=== PATIENT | male | born 1950 | race Caucasian/White ===

== ENCOUNTER 2017-01-05 10:39 | Outpatient (CLI) | payer MEDICARE ==
[~2017-01-05] VITALS: Ht 175.3 cm; Wt 66.7 kg
[~2017-01-05 10:39] MED LIST: CELEXA10 MG; GABAPENTIN100 MG; IBUPROFEN400 MG PO; LEVAQUIN500 MG PO; LOVASTATIN40 MG PO; NORVASC10 MG PO; NORVASC5 MG PO; PRILOSEC20 MG PO; PROVENTIL HFA6.7 GM INH; SPIRIVA18 MCG INH; STERAPRED 5MG 65 M1 PO; TUMS X-STR300 MG PO; VIAGRA25 MG PO; ZESTORETIC 20-1 EACH PO; ZOFRAN4 MG PO; ZYLOPRIM100 MG PO
[2017-01-05 11:40] VITALS: BP 111/70; Ht 175.3 cm; Wt 66.7 kg
--- NOTE | 2017-01-05 18:28 | NUR ---
1350 REPORT FROM DEIDRA MCWILLIAMS RN. PT. RECEIVING BLOOD VIA PORT LEFT CHEST BY ALARIS PUMP AT 175/CC/HR. DENIES PROBLEMS, RATE INCREASED TO 200/CC/HR. AT BEDSIDE. 1420 DRINKING COLA, VOIDS IN URINAL, QS, DENIES NEEDS. 1500 BLOOD COMPLETED, LINE BEING FLUSHED WITH NS. 1510 2ND UNIT CHECKED AT BEDSIDE BY THIS NURSE AND RAFAT OROZCO RN INITATED BY ALARIS PUMP AT 50CC/HR. DENIES NEEDS. 1525. DENIES PROBLEMS, RATE INCREASED TO 150/CC/HR. COLA REQUESTED AND SERVED. 1625 SUPPER TRAY ORDERED. 1650 SUPPER TRAY SERVED. BLOOD NEAR COMPLETED. 1707 BLOOD COMPLETED, LINE BEING FLUSHED WITH NS. 1730 PT. ATE 90% SUPPER DIET, DENIES PROBLEMS 1807 DENIES PROBLEMS WITH TRANSFUSION, PORT HAS BEEN FLUSHED WITH SALINE AND HEPARIN FLUSH AND DC'D WITH DAVIS NEEDLE INTACT. DC INSTS. REVIEWED WITH PT AND PT'S . 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
== END 2017-01-05 18:10 | disposition home or self-care (01) ==
LOC: D.OPS 10:39
DX: D64.81 Anemia due to antineoplastic chemotherapy (principal)

== ENCOUNTER 2017-01-16 12:41 | Emergency (ER) | payer MEDICARE ==
[2017-01-05 11:40] VITALS: BMI 21.7
[2017-01-16 13:57] LABS: BASOPHILS 0 % (0.0-2.0); EOSINOPHILS 1.4 % (0-7); HEMOGLOBIN 8.9 g/dL (13.5-17.5); IMMATURE GRANULOCYTES 0.4 % (0-5); LYMPHOCYTES 11.7 % (15-50); MCH 31.8 pg (26.0-34.0); MCHC 34.2 g/dL (31.0-37.0); MCV 92.9 fL (80.0-100.0); MEAN PLATELET VOLUME 9.8 fL (7.4-10.4); MONOCYTES 1.6 % (2-11); NEUTROPHILS 84.9 % (40-80); RDW 15.2 % (11.5-14.5)
[2017-01-16 14:06] LABS: PLATELET COUNT 137 10x3/uL (130-400)
[2017-01-16 14:27] LABS: ALBUMIN 3.2 g/dL (3.4-5.0); ALKALINE PHOSPHATASE 60 U/L (46-116); ALT (SGPT) 63 U/L (10-68); BILIRUBIN - TOTAL 0.37 mg/dL (0.2-1.3); CALC OSMOLALITY 276 mosm/kg (275-300); CALCIUM 8.7 mg/dL (8.5-10.1); CARBON DIOXIDE 21.2 mmol/L (21.0-32.0); CHLORIDE - SERUM 99 mmol/L (98-107); CREATININE - SERUM 2.4 mg/dL (0.6-1.3); GLUCOSE 136 mg/dL (74-106); PROTEIN - SERUM 6.5 g/dL (6.4-8.2); SODIUM 132 mmol/L (136-145); UREA NITROGEN 40 mg/dL (7-18); eGFR NON AFRICAN AMERICAN 29 mL/min (90-120)
[2017-01-16 14:29] LABS: CREATINE KINASE 26 UL (21-232); TROPONIN-I < 0.017 ng/mL (0.000-0.060)
[2017-01-16 17:12] LABS: CKMB 0.3 U/L (0.0-3.6)
== END 2017-01-16 18:35 | disposition home or self-care (01) ==
LOC: D.ER 12:41
PROVIDERS: Emergency Medicine
DX: R07.9 Chest pain, unspecified (principal)

== ENCOUNTER 2017-02-23 09:49 | Outpatient (CLI) | payer MEDICARE ==
[2017-01-05 11:40] VITALS: BMI 21.7
--- NOTE | 2017-02-23 18:20 | NUR ---
PLATELET INFUSION COMPLETE, PORT FLUSHING WITH NS AT KVO, PATIENT UNDERSTANDS NEED TO REMAIN FOR ONE HOUR AND AGREES, PATIENT DENIES COMPLAINTS
--- NOTE | 2017-02-23 19:28 | NUR ---
PORT FLUSHED PER PROTOCOL WITH SALINE AND HEPARIN FLUSH, PORT DEACCESSED. DISCHARGE INSTRUCTIONS REVIEWED WITH PATIENT AND SPOUSE. PATIENT DISCHARGED VIA WHEELCHAIR TO PRIVATE VEHICLE WITH SPOUSE
== END 2017-02-23 19:29 | disposition home or self-care (01) ==
LOC: D.OPS 09:49
DX: D64.81 Anemia due to antineoplastic chemotherapy (principal)

== ENCOUNTER 2017-03-16 10:04 | Outpatient (CLI) | payer MEDICARE ==
[~2017-03-16] VITALS: Ht 172.7 cm; Wt 70.0 kg
[2017-03-16 12:30] VITALS: BP 115/59; Ht 172.7 cm; Wt 70.0 kg
--- NOTE | 2017-03-16 12:34 | NUR ---
1215 PATIENTS BLOOD IS READY, FLUSHED LINE AND HOOKED UP TUBING, FIRST UNIT AT 75CC HOUR, PATIENT INSTRUCTED TO CALL IF ANY REACTION. PRE MEDS GIVEN. EATEN LUNCH. VS MACHINE SET ON EVERY 15MINUTES, AT BEDSIDE AND WILL CALL IF NEEDED.
--- NOTE | 2017-03-16 15:06 | NUR ---
1440--1ST UNIT OF PRBC'S COMPLETE. ANITHA CULP 1503--LASIX 20MG GIVEN SIVP. ANITHA CULP
--- NOTE | 2017-03-16 17:45 | NUR ---
1610--DINNER TRAY SERVED TO PT, PT DENIES FURTHER NEEDS. WILL CONTINUE TO MONITOR. ANITHA CULP
--- NOTE | 2017-03-16 19:30 | NUR ---
LEFT SUBCLAVIAN PORT FLUSHED WITH 20 CC SALINE AND 5 CC HEPARIN FLUSH PER PROTOCOL, PORT DEACCESSED. PATIENT DISCHARGED HOME VIA WHELCHAIR TO PRIVATE VEHICLE WITH SPOUSE AT 1935
[2017-03-17] MEDS ORDERED: MAG-OX 400 MG400 MG PO (11:52)
== END 2017-03-16 19:35 | disposition home or self-care (01) ==
LOC: D.OPS 10:04
DX: D64.81 Anemia due to antineoplastic chemotherapy (principal); D69.59 Other secondary thrombocytopenia

== ENCOUNTER 2017-03-17 10:17 | Outpatient (CLI) | payer MEDICARE ==
[2017-03-17] MEDS ORDERED: MAG-OX 400 MG400 MG PO (11:52)
[2017-03-17 12:04] VITALS: BP 104/59; Ht 172.7 cm
--- NOTE | 2017-03-17 14:59 | NUR ---
1330 REPORT FROM RAFAT BARCENAS RN. PT. DOSING. BLOOD GOING WELL PER ALARIS PUMP AT 160/CC/HR. AT SIDE. 1410 BLOOD COMPLETED LINE BEING FLUSHED WITH NS. 1430 LASIX 20MG GIVEN PER JAN. 2ND UNIT BLOOD CHECKED AT BEDSIDE BY THIS NURSE AND LISA MORTENSEN RN. INITIATED BY ALARIS PUMP AT 50/CC/HR. PT. DOSING. 1445 PT REPOSITIONED SELF TO RIGHT SIDE AND IS SLEEPING. RATE INCREASED TO 160/CC/HR. AT SIDE. URINAL AT SIDE.
--- NOTE | 2017-03-17 15:11 | NUR ---
1500 VOIDS 200CC IN URINAL THEN RETURNS TO SLEEP. DENIES PROBLEMS WITH TRANSFUSION.
--- NOTE | 2017-03-17 15:30 | NUR ---
1515 VOIDS 200CC IN URINAL.
--- NOTE | 2017-03-17 18:59 | NUR ---
1650 PLATLETS CHECKED AT BEDSIDE BY THIS NURSE AND PAMELA COELHO RN, INITIATED AT BEDSIDE AT 250/CC/HR 1720 DENIES PROBLEMS, RATE INCREASED AT 300/CC/HR. 1735 PLATELETS COMPLETED, LINE FLUSHING WITH NS. 1830 DENIES PROBLEMS WITH BLOOD OR PLATELETS, PORT FLUSHED WITH NS AND HEPARIN PER MAR PT UP TO BR VOIDS LG AMT. DC INSTS REVIEWED WITH PT AND RELEASED IN WC.
== END 2017-03-17 18:40 | disposition home or self-care (01) ==
LOC: D.OPS 10:17
DX: D64.81 Anemia due to antineoplastic chemotherapy (principal); D69.59 Other secondary thrombocytopenia

== ENCOUNTER 2017-03-28 08:21 | Inpatient (IN) | payer MEDICARE ==
[~2017-03-28] VITALS: Ht 172.7 cm; Wt 68.6 kg
[2017-03-28] VITALS (27 sets, daily range): BP systolic 75–121; BP diastolic 39–88; Ht 172.7 cm; Wt 68.6 kg
[~2017-03-28 08:21] MED LIST changes: +MAG-OX 400 MG400 MG PO
[2017-03-28 08:47] LABS: BASOPHILS 0 % (0-2); HEMATOCRIT 33.1 % (42.0-54.0); HEMOGLOBIN 11.5 g/dL (13.5-17.5); LYMPHOCYTES 3.5 % (15-50); MCH 31.4 pg (26.0-34.0); MCHC 34.7 g/dL (31.0-37.0); MCV 90.4 fL (80.0-100.0); MEAN PLATELET VOLUME 10.3 fL (7.4-10.4); MONOCYTES 1.8 % (2-11); NEUTROPHILS 91.7 % (40-80); RBC 3.66 10x6/uL (4.20-6.10); RDW 16.7 % (11.5-14.5); WBC 12.7 10x3/uL (4.8-10.8)
[2017-03-28 08:53] LABS: PLATELET COUNT 207 10x3/uL (130-400)
[2017-03-28 09:00] LABS: ALBUMIN 2.5 g/dL (3.4-5.0); ANION GAP 14.8 mmol/L (8-16); BILIRUBIN - TOTAL 0.7 mg/dL (0.2-1.3); CALCIUM 8.4 mg/dL (8.5-10.1); CARBON DIOXIDE 21.8 mmol/L (21.0-32.0); CREATININE - SERUM 3.3 mg/dL (0.6-1.3); POTASSIUM - SERUM 4.6 mmol/L (3.5-5.1); PROTEIN - SERUM 5.9 g/dL (6.4-8.2)
[2017-03-28 15:02] LABS: APPEARANCE CLEAR (CLEAR); BILIRUBIN NEGATIVE (NEGATIVE); COLOR YELLOW (YELLOW); GLUCOSE NEGATIVE (NEGATIVE); KETONE NEGATIVE (NEGATIVE); LEUKOCYTE ESTERASE NEGATIVE (NEGATIVE); NITRITE NEGATIVE (NEGATIVE); PROTEIN TRACE mg/dL (NEGATIVE); UROBILINOGEN NORMAL (NORMAL)
--- NOTE | 2017-03-28 15:45 | NUR ---
ASSESSMENT COMPLETE WITH NS INFUSING AT 150 CC/HR DOPAMINE UP TO INFUSE ORDERED. STARTED AT 5 CAMILA/KG/HR OR 13.1 CC
--- NOTE | 2017-03-28 16:00 | NUR ---
HR 131 WITH BP 96/39 MAP 51 PATIENT COMPLAINS OF NAUSEA DR RIBEIRO NOTIFIED WITH NEW ORDERS. DOPAMINE TURNED OFF AND LITER NS BOLUS GIVEN. 4 MG ZOFRAN GIVEN.
--- NOTE | 2017-03-28 17:57 | NUR ---
RESTING QUIETLY WITH NO SIGN OF DISTRESS BP 84/46 WITH MAP 57 NS INFUSING AT 150 CC/HR. ESPINOZA CATH DRAINING TO BEDSIDE COLLECTION
--- NOTE | 2017-03-28 19:15 | NUR ---
SPOKE WITH DR RIBEIRO R/T CONTINUED HYPOTENSION AFTER FLUID CHALLENGE... ORDERS RECVD FOR LEVOPHED GTT PER PROTOCOL.
--- NOTE | 2017-03-28 19:20 | NUR ---
REPORT RECVD. CARE ASSUMED. INITIAL ASSMNT COMPLETED. SEE FLOWSHEET FOR ALL FINDINGS. AWAKE AND AOX4. IRRITABLE...STATES, "I WANT THIS CATHETER OUT..OR I AM GONNA PULL IT OUT!" ASSED CATHETER FOR PLACEMENT AND DRAINAGE. INTACT, PATENT AND SECURED. CONTINUES TO DEMAND IT BE REMOVED. REMOVED F/C WITH TIP INTACT NO DIFF. PT CALM ND COOPERATIVE. RESP EVEN AND UNLABORED. LUNGS CTA, DIM IN BASES. SPO2 96% ON O2 AT 2 LPM NC. SR ON THE MONITOR. HYPOTENSIVE BELOW PARAMETERS. LEVOPHED GTT TITRATION INITIATED. DENIES FURTHER DISCOMFORT AT THIS TIME. ABD SOFT, BSA X4. BLADDER NON PALP.. REPOSITIONED SELF FOR COMFORT IN BED. BED ALARM ON FOR SAFETY. TEACHING R/T FALL RISK COMPLETED. VERBALIZES UNDERSTANDING. URINAL IN REACH. PO FLUIDS AND HS SNACK PROVIDED. HOB UP. C/L IN REACH. CONT CURRENT POC.
--- NOTE | 2017-03-28 21:09 | NUR ---
AT BEDSIDE FOR VISITATION. TEACHING DONE. UPDATE GIVEN. PT RESTING WITH NO DISTRESS. SYS 94, MAP 62. LEVOPHED GTT TITRATION IN PROGRESS. REPOSITIONS SELF IN BED. HOB UP. C/L IN REACH. BED ALARM ON. CONT CURRENT POC.
--- NOTE | 2017-03-28 22:26 | NUR ---
VOIDED TO URINAL NO DIFF. DENIES FURTHER NEEDS. B/P WITHIN PARAMETERS.
--- NOTE | 2017-03-28 23:15 | NUR ---
REASSESSMENT COMPLETED. SEE FLOWSHEET FOR ALL FINDINGS. RESTING WITH NO DISTRESS. VSS. SYS B/P WITHIN PARAMETERS. REMAINS ON LEVOPHED GTT TITRATION. DENIES DISCOMFORT/NEEDS. SR ON THE MONITOR. SPO2 98% ON O2 AT 2 LPM NC. SCDS ON. AFEBRILE. HOB UP. C/L IN REACH. BED ALARM ON. CONT CURRENT POC.
[2017-03-29] VITALS (57 sets, daily range): BP systolic 80–124; BP diastolic 42–71
--- NOTE | 2017-03-29 01:05 | NUR ---
RESTING WITH NO DISTRESS. VSS. DENIES NEEDS. REPOSITIONS SELF. HOB UP. C/L IN REACH. BED ALARM ON. CONT CURRENT POC.
[2017-03-29 04:26] LABS: BASOPHILS 0 % (0-2); EOSINOPHILS 2.5 % (0-7); HEMATOCRIT 27.7 % (42.0-54.0); HEMOGLOBIN 9.5 g/dL (13.5-17.5); IMMATURE GRANULOCYTES 2.9 % (0-5); LYMPHOCYTES 7.6 % (15-50); MCH 31.4 pg (26.0-34.0); MCHC 34.3 g/dL (31.0-37.0); MCV 91.4 fL (80.0-100.0); MEAN PLATELET VOLUME 10.4 fL (7.4-10.4); MONOCYTES 4.1 % (2-11); NEUTROPHILS 82.9 % (40-80); PLATELET COUNT 177 10x3/uL (130-400); RBC 3.03 10x6/uL (4.20-6.10); RDW 16.7 % (11.5-14.5)
[2017-03-29 04:27] LABS: WBC 6.3 10x3/uL (4.8-10.8)
[2017-03-29 04:37] LABS: CALCIUM 7.2 mg/dL (8.5-10.1); CARBON DIOXIDE 18.2 mmol/L (21.0-32.0); CREATININE - SERUM 2.5 mg/dL (0.6-1.3); POTASSIUM - SERUM 4.2 mmol/L (3.5-5.1); URIC ACID 8.3 mg/dL (2.6-7.2)
--- NOTE | 2017-03-29 05:26 | NUR ---
RESTING WITH NO DISTRESS. VSS. SYS B/P WITHIN PARAMETERS. HOB UP. C/L IN REACH. CONT CURRENT POC.
--- NOTE | 2017-03-29 06:12 | NUR ---
AT BEDSIDE. UPDATE GIVEN.
--- NOTE | 2017-03-29 07:11 | NUR ---
SHIFT ASSESSMENT COMPLETE. PATIENT ALERT AND ORIENTED WITH PAIN DENIED VERBALIZED FEELING BETTER THIS AM LUNG SOUNDS ARE DIMINISHED ALL LOBES WITH O2 AT 2 LITERS. BP 111/54 WITH LOVEPHED AT 5 CAMILA OR 11.3 CC/HR AND NS AT 100 CC/HR TO LEFT INFUSAPORT. SCD'S IN USE
--- NOTE | 2017-03-29 08:00 | NUR ---
BREAKFAST AT BEDSIDE WITH SET UP OF MEAL PROVIDED PAIN IS DENIED VSS WITH LOVEPHED INFUSING ON PUMP
--- NOTE | 2017-03-29 09:07 | NUR ---
UP TO CHAIR IN ROOM WITH LINEN CHANGE AND BATH.VSS
--- NOTE | 2017-03-29 12:25 | NUR ---
DR IGLESIAS AT BEDSIDE WITH NEW ORDERS RECIEVED LEFT CVL REMOVED WITH PRESSURE HELD. PATIENT UP TO GET DRESSED FOR DISCHARGE
--- NOTE | 2017-03-29 13:28 | NUR ---
RESTING QUIELTY WITH EYES CLOSED NO DISTRESS NOTED. VSS
--- NOTE | 2017-03-29 14:30 | NUR ---
PHYSICAL THERAPY PRESENT TO AMBULATE
--- NOTE | 2017-03-29 19:00 | NUR ---
REPORT RECEIVED AND ASSESSMENT COMPLETED SEE FLOWSHEET FOR FULL DETAILS. PT IS VERY IRRITABLE BECAUSE HE CANNOT SMOKE. CALLED [facility] [employer]FF [employer] "[employer]" WILL CONTINUE TO MONITOR FOR CHANGES
--- NOTE | 2017-03-29 21:00 | NUR ---
NO CHANGES IN STATUS AT THIS TIME. PT HAS CALMED DOWN. REQUESTED BEAR HUGGER TO KEEP WARM. NO RUNNING LOW TEMP BUT STATES HE FEELS COOL. VSS. WILL MONITOR
--- NOTE | 2017-03-29 23:00 | NUR ---
REASSESSMENT COMPLETED. SEE FLOWSHEET FOR FULL DETAILS. VSS. WILL MONITOR
[2017-03-30] VITALS (9 sets, daily range): BP systolic 91–140; BP diastolic 46–81
--- NOTE | 2017-03-30 01:19 | NUR ---
REMOVED SADIE SMALLER FROM PT. NO OTHER CHANGES AT THIS TIME. VSS.
--- NOTE | 2017-03-30 03:28 | NUR ---
REASSESSMENT COMPLETED. SEE FLOWSHEET FOR FULL DETAILS. NO OTHER CHANGES TO REPORT AT THIS TIME.
--- NOTE | 2017-03-30 05:58 | NUR ---
NO CHANGES IN STATUS AT THIS TIME. VSS. WILL MONITOR
--- NOTE | 2017-03-30 07:00 | NUR ---
PT REPORT REC'D, PT CARE ASSUMED. PT AAOX4, NO C/O PAIN, VSS. SHIFT ASSESSMENT COMPLETED, SEE FLOW SHEET. ROOM FREE OF CLUTTER, CALL LIGHT IN REACH, WILL CONTINUE TO MONITOR PT.
[2017-03-30 07:14] LABS: ANION GAP 15.2 mmol/L (8-16); CARBON DIOXIDE 18.9 mmol/L (21.0-32.0); CREATININE - SERUM 2.4 mg/dL (0.6-1.3); POTASSIUM - SERUM 4.1 mmol/L (3.5-5.1)
[2017-03-30 07:30] LABS: PHOSPHOROUS 3.6 mg/dL (2.5-4.9)
--- NOTE | 2017-03-30 08:00 | NUR ---
DR. NAVA AT THE BEDSIDE, PLANS TO DISCHARGE HOME.
--- NOTE | 2017-03-30 08:00 | NUR ---
DR NAVA HERE OK TO DC HOME.
--- NOTE | 2017-03-30 08:21 | NUR ---
RIO DCD. PORT FLUSHED WITH SALINE HEPARIN DEWELLING IN WELL.
--- NOTE | 2017-03-30 08:22 | NUR ---
UP GETTING DRESSED.
--- NOTE | 2017-03-30 08:30 | NUR ---
D/C INSTUCTIONS GIVEN AND SIGNED, PT VERBALIZED PLANS FOR AFTER DISCHARGE. AWAITING 'S ARRIVAL TO [facility].
--- NOTE | 2017-03-30 08:46 | NUR ---
PT WHEELED TO PERSONAL VEHICLE, DRIVING.
== END 2017-03-30 08:48 | disposition home or self-care (01) | DRG 643 ==
LOC: D.ER 08:21 → D.ICU 12:16 → D.CVICU 12:16
PROVIDERS: Emergency Medicine; Internal Medicine Nephrology; ADMIT Internal Medicine Hematology & Oncology
DX: E22.2 Syndrome of inappropriate secretion of antidiuretic hormone (principal); N17.0 Acute kidney failure with tubular necrosis; C34.90 Malignant neoplasm of unspecified part of unspecified bronchus or lung; G72.0 Drug-induced myopathy; D63.8 Anemia in other chronic diseases classified elsewhere; R00.0 Tachycardia, unspecified; I10 Essential (primary) hypertension; E78.5 Hyperlipidemia, unspecified; J44.9 Chronic obstructive pulmonary disease, unspecified; E86.9 Volume depletion, unspecified; E83.51 Hypocalcemia; T45.1X5A Adverse effect of antineoplastic and immunosuppressive drugs, initial encounter; Z72.0 Tobacco use